=== PATIENT | female | born 1950 | race Caucasian/White ===

== ENCOUNTER 2020-05-12 07:59 | Day surgery (SDC) | payer MEDICARE, OTHER, SELFPAY ==
--- NOTE | 2020-04-28 16:25 | HP.PCM_ITS ---
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 Patient is scheduled for a total upper scopic hysterectomy, salpingo- oophorectomy, cystoscopy for persistent cervical dysplasia. Patient has had multiple abnormal Pap smears which required colposcopy. Most recent colposcopy biopsies yielded low-grade. Reviewed options with the patient including proceeding with surgical intervention versus continued Pap with HPV and colposcopies. Patient would like to proceed with surgical intervention at this time. Patient denies any chest pain, shortness of breath or dizziness. ? PAST MEDICAL HISTORY PAST MEDICAL HISTORY Diagnosis Date ? Abnormal Pap smear of cervix 06/29/14 ? LSIL and HPV+ ? Adrenal incidentaloma (HCC) 12/03/2014 ? lipid rich adenomas on MRI 11/201915 done for follow up on CT abdomen 12/03/2014 ? Breast cancer (HCC) ? ? Right- cancer free 20 years (as of 2009). Follows with oncolgist at [facility] yearly ? Displacement of lumbar intervertebral disc without myelopathy 06/24/2012 ? HTN (hypertension) 11/26/2014 ? Osteopenia 07/25/2016 ? Sciatica 06/24/2012 PAST SURGICAL HISTORY PAST SURGICAL HISTORY Procedure Laterality Date ? APPENDECTOMY ? ? ? COLONOSCOP W/ OR W/O BRSH SPEC ? 11/05/12 ? Colonoscopy ? LUMPECTOMY/RADIOTHERAPY DIAG MAMM/A10 ? 1989 ? for breast ca ? VAGINOSCOPY ? 08/08/14 FAMILY HISTORY FAMILY HISTORY Problem Relation Age of Onset ? Cancer Mother 60 ? cervical ? Coronary Artery Disease Father ? ? from massive heart attack at 76yo ? Cancer Brother ? ? esophageal ? Breast Cancer Maternal Aunt ? ? Breast Cancer Maternal Aunt ? ? Breast Cancer Maternal Aunt ? SOCIAL HISTORY Social History ? Tobacco Use ? Smoking status: Former Smoker ? ? Packs/day: 0.50 ? ? Years: 25.00 ? ? Pack years: 12.50 ? ? Types: Cigarettes ? ? Last attempt to quit: 04/22/2020 ? ? Years since quittin.0 ? Smokeless tobacco: Never Used ? Tobacco comment: Working on quitting smoking; no longer smokes in house Substance Use Topics ? Alcohol use: Yes ? ? Frequency: Monthly or less ? ? Drinks per session: 1 or 2 ? ? Binge frequency: Never ? ? Comment: occassional ? Drug use: No CURRENT MEDICATIONS Current Outpatient Medications Medication Sig ? zoledronic acid (RECLAST) 5 mg/100 mL pgbk PREMIX piggyback Inject 100 mL intravenously every year. ? ergocalciferol 50,000 unit capsule (VITAMIN D2, DRISDOL) Take 1 capsule by mouth one time a week. ? amLODIPine (NORVASC) 5 mg tablet Take 0.5 tablets by mouth once daily. ? aspirin, enteric coated (ASPIRIN, ENTERIC COATED) 81 mg EC tablet Take 1 tablet by mouth once daily. ? docusate sodium (COLACE) 100 mg capsule Take 1 capsule by mouth twice daily. ? oxyCODONE IR (ROXICODONE) 5 mg immediate release tablet Take 1 tablet by mouth every 8 hours as needed for Pain for up to 5 days. ? simethicone, chewable (MYLICON) 80 mg chewable tablet Take 1 tablet by mouth every 6 hours as needed. ? acetaminophen (TYLENOL EXTRA STRENGTH) 500 mg tablet Take 2 tablets by mouth every 6 hours as needed. FOR PAIN. ? ibuprofen (MOTRIN) 600 mg tablet Take 1 tablet by mouth every 6 hours as needed. ? No current facility-administered medications for this visit. Allergies As of Date: 04/28/2020 (No Known Allergies) Fully Assessed 04/28/2020 ? REVIEW OF SYSTEMS Abdomen: no pain Bladder: no dysuria.. Expanded ROS: GENERAL: Negative for fever Allergies and current medication updated:Yes ? EXAM: BP 130/82 Ht 5' 3.75 (1.62m) Wt 111 lb (50.3kg) BMI 19.21 kg/(m^2). GENERAL: pleasant, female in no apparent distress HEENT: Normocephalic and atraumatic NECK: full range of motion DERMATOLOGY: Normal and without lesions NEURO: alert and oriented x3,exam grossly non-focal EXTREMITIES: normal ? ASSESSMENT AND PLAN: Encounter Diagnosis ? ? ICD-10-CM ? 1. Mild cervical dysplasia N87.0 ? 2. Post-op pain G89.18 oxyCODONE IR (ROXICODONE) 5 mg immediate release tablet 3. Pre-op exam Z01.818 ? 4. Pt has been counseled on risks/benefits and alternatives of surgery including but not limited to anesthesia, bleeding, infection, injury to pelvic structures including bowel, bladder, ureters and vessels. Pt wishes to proceed with surgery at this time. 5. POST OP MEDS ORDERED 6. ERAS protocol and covid testing reviewed ? ? Leonela Abdalla MD ? Procedure Criteria Procedure Type: Elective COVID Risk Discussion: The surgeon/proceduralist and patient have discussed in detail the risk of exposure to and/or potential harm posed by the COVID-19 virus with having a surgery/procedure at this time versus the risk of delaying the surgery/procedure. It is not possible to know either the risk of delaying the surgery or procedure or chance of getting an infection with perfect accuracy, but a joint decision was made between the patient and the surgeon/proceduralist to proceed at this time with the scheduled surgery/procedure as indicated on the consent form.
--- NOTE | 2020-05-06 08:42 | EKG12_ITS ---
Test Reason : PRE OP Blood Pressure : / mmHG Vent. Rate : 063 BPM Atrial Rate : 063 BPM P-R Int : 184 ms QRS Dur : 076 ms QT Int : 376 ms P-R-T Axes : 076 -34 003 degrees QTc Int : 384 ms Normal sinus rhythm Left axis deviation Nonspecific ST abnormality Abnormal ECG Confirmed by ELVIE GOODRICH, MONICA ([id number]), multimedia editor DIANA CORNEJO ([id number]) on 05/09/2020 11:07:56 AM Referred By: Leonela Abdalla Confirmed By:MONICA BERMEO MD
[2020-05-06 09:17] LABS: Hematocrit 46.5 % (37-47); Hemoglobin 15.5 g/dL (12.0-15.0); Mean Corp Hgb Conc 33.3 g/dL (32-36); Mean Corpuscular Volume 98.9 fL (81-99); Mean Platelet Vol. 8.4 fl (6.2-12.0); Platelet Count 290 K/mm3 (150-450); RBC Distribution Width CV 12.6 % (11.6-14.6); RBC Distribution Width SD 45.7 fl (35.1-43.9); White Blood Count 6.8 K/mm3 (4.4-11.0)
[2020-05-06 10:19] LABS: Anion Gap 4 (5-15); BUN 16 mg/dL (7-18); BUN/Creat Ratio 17.6 RATIO (10-20); Calcium,Total 9.1 mg/dL (8.5-10.1); Chloride 110 mmol/L (98-107); Creatinine, Serum 0.91 mg/dL (0.55-1.02); EST Glomerular Filtration Rate 65 mL/min (>60); Est Glom Filt Rate - Afr Amer 78 mL/min (>60); Glucose 71 mg/dL (74-106); Potassium 3.8 mmol/L (3.5-5.1); Sodium Level 142 mmol/L (136-145)
[2020-05-12] VITALS (11 sets, daily range): BP systolic 103–157; BP diastolic 52–88; PULSE 63–80; RESP 15–18; TEMP 35.8–36.5; O2SAT 96–100; BMI 19.0
--- NOTE | 2020-05-12 | IMM_PTH ---
PATIENT: PHILIP RODRIGUEZ [place] [facility] [id number] AGE/SX: 70/F ROOM: RE05/12/[address]: Dr. Leonela Abdalla, MDDOB: 1950 BED: DIS: 05/12/2020 SPEC #: [id number] RECD: 05/13/20 12:29 STATUS: BETH REWaqar #: [id number] DANN: 05/12/20 00:[address]: Leonela Abdalla DEPT: IMMUNOHISTOCHEMISTRY RECD BY: Lyla Dietz ENTERED: 05/13/20 12:30 SP TYPE: IMMUNO OTHR DR: Dr. Anastasiya James MD Tissues: Uterus, NOS Procedures: p16 (initial) KI-67 (add) P16 (add) PHYSICIAN & INSTITUTION [place] [id number] SPECIMEN INFORMATION: Tissue Source: Uterus Clinical Info: Mild cervical dysplasia Specimen Number: [id number] #1 & 3 CPT code: 78472, 92566 x3 METHODOLOGY: Deparaffinized sections of prefer/formalin-fixed tissue or PAP/DQ stained slides are incubated with monoclonal/polyclonal antibodies/oligonucleotide probes. Localization is made via biotin free immunoperoxidase method. Appropriate controls are performed and reacted as expected. Results on target cell population are indicated in the following table: RESULTS: ANTIBODY / CLONE RESULT Block 1 P16 (E6H4) negative Ki-67 (30-9) negative Block 3 P16 (E6H4) negative Ki-67 (30-9) negative These tests were developed and their performance characteristics determined by [facility]. They may not have been cleared or approved by the U.S. Food and Drug Administration. The FDA has determined that such clearance or approval is not necessary. The above immunohistochemical/dualISH markers are ordered and reviewed by the Pathologist. INTERPRETATION: Uterus, hysterectomy: No evidence of cervical dysplasia. AM:mukesh 05/16/20
[2020-05-12 08:30] LABS: Bedside Glucose 90 mg/dL (70-110)
--- NOTE | 2020-05-12 08:34 | DCINST_ITS ---
Discharge Diet: No Restrictions Discharge Activity: Return to Normal Activity, May Shower, May Take a Tub Bath - in 2 weeks. May resume sexual activity in: 2 weeks Call your doctor if you observe: Fever of 101 or Higher, Using more than one pad per hour Allergies/Adverse Reactions: Allergies No Known Allergies Allergy (Verified 05/12/20 08:09) Medications to take at Discharge Amlodipine [Norvasc] 2.5 mg PO DAILY 05/05/20 Aspirin E.C. [Ecotrin] 81 mg PO DAILY@79905/05/20 Calcium (Elemental) [Os-Spencer 500] 500 mg PO DAILY@79905/05/20 Ergocalciferol [Vitamin D] 50,000 unit PO Q7D 05/05/20 Orders to be completed after discharge: 12 Lead EKG [CVS] Time Frame: 05/05/20, Facility: [facility], Location: Cardiovascular Services Magnesium Time Frame: 05/12/20, Facility: [facility], Location: Laboratory Primary Care Physician: Anastasiya James MD [Primary Care Provider] - Test Results: Test results from this visit will be discussed in further detail at your follow- up appointment, if applicable. Please Follow Up With: Leonela Abdalla MD When: as scheduled
--- NOTE | 2020-05-12 08:35 | PCM.OPRPT ---
Report of Operation Date of Procedure: 05/12/20 Pre-Operative Diagnosis: AUB, fibroid uterus Post-Operative Diagnosis: same Surgery/Procedure Performed:: Hysteroscopy, D&C, Myomectomy, Endometrial ablation Type of Anesthesia:: MAC Description of Procedure: After informed consent was obtained patient taken to the operating room she is placed in supine position she is given anesthesia simply self insert she is prepped draped normal sterile fashion. Bladder was drained prior to the start of the procedure. At this time the weighted speculum was placed the posterior fornix of the vagina then a single-tooth tenaculum was used to grasp the anterior lip of the cervix. At this time the uterus was sounded to approximately[ 9] cm the endocervical canal sounded to [4] cm. Next cervix was dilated in incremental fashion. Once adequate dilatation was achieved the hysteroscope was inserted using normal saline as distention medium. On hysteroscopy there were no gross abnormalities. Both tubal ostia were visualized. tissue will be sent to pathology for evaluation. There was no breech in the endometrial cavity after myomectomy performed. At this time the Aretha device was opened. The Aretha was set at [5] cm. The device was activated. Prior to activation the field test was performed and cavity was intact. The device was then fired and activated for 120 seconds. Once the 120 seconds was completed the device was removed intact and the tenaculum was removed. Good hemostasis was appreciated. Weighted speculum was removed. Vaginal sweep was performed is negative. There were no complications. Anticipated normal postoperative course for this patient. Instrument and lap count were correct ?2. - Admit VTE Documentation VTE Present on Admission: Yes VTE Mechan Device Prophylaxis: [facility]'s VTE Pharm Prophylaxis ordered?: No
[2020-05-12 08:52] LABS: Magnesium 2.3 mg/dL (1.6-2.6)
[2020-05-12] MEDS: Gabapentin 600 MG Tablet PO (08:52)
[2020-05-12] MEDS: Celecoxib 200 MG Capsule 400 MG PO (08:53)
[2020-05-12] MEDS: Phenazopyridine 95 MG Tablet 190 MG PO (08:53)
[2020-05-12] MEDS: Acetaminophen 500 MG Tablet 1000 MG PO ×2 (08:54→15:11)
[2020-05-12] MEDS: Scopolamine 1mg/72hr Patch 1 PATCH TRANSDERM. (08:55)
[2020-05-12] MEDS: Lactated Ringers 1,000 ML 40 ML IV ×2 (08:58→10:45)
[2020-05-12] MEDS: Enoxaparin 40 MG/0.4 ML Syringe SC (08:58)
--- NOTE | 2020-05-12 09:48 | PCM.DC.AHY ---
Discharge Diet: No Restrictions Discharge Activity: Return to Normal Activity, May Shower - tomorrow May resume sexual activity in: 6-8 weeks Lifting Restrictions: 20 Call your doctor if your incision/area has: Continuous Slow Oozing, Increased Pain/ Swelling, Foul Smelling Discharge, Swelling at the incision site Call your doctor if you observe: Fever of 101 or Higher, Inability to urinate, Inability to have a bowel movement, Using more than one pad per hour, Uncontrolled pain Cleanse incision/area with: Keep Dressing Clean & Dry, - - you have skin glue over incisions site- may let soap and water run over incisions sites and dab dry. Allergies/Adverse Reactions: Allergies No Known Allergies Allergy (Verified 05/12/20 08:40) Medications to take at Discharge Amlodipine [Norvasc] 2.5 mg PO DAILY 05/05/20 Aspirin E.C. [Ecotrin] 81 mg PO DAILY@0800 05/05/20 Calcium (Elemental) [Os-Spencer 500] 500 mg PO DAILY@0800 05/05/20 Ergocalciferol [Vitamin D] 50,000 unit PO Q7D 05/05/20 Orders to be completed after discharge: 12 Lead EKG [CVS] Time Frame: 05/05/20, Facility: [facility], Location: Cardiovascular Services Primary Care Physician: Anastasiya James MD [Primary Care Provider] - Test Results: Test results from this visit will be discussed in further detail at your follow-up appointment, if applicable. Please Follow Up With: Leonela Abdalla MD When: as scheduled
[2020-05-12] MEDS: Cefazolin 2 GM in 0.9% Normal Saline 100 ML IV (09:49)
[2020-05-12] MEDS: Bupivacaine Mpf 0.5% 30 ML VIAL (10:10)
[2020-05-12] MEDS: dexAMETHasone 10 MG/ML Vial 8 MG IV (10:10)
--- NOTE | 2020-05-12 10:15 | HYST_PTH ---
PATIENT: PHILIP RODRIGUEZ LOC: [facility] – [place] U#:[id number] AGE/SX: 70/F ROOM: RE05/12/[address]: Dr. Leonela Abdalla, MDDOB: 1950 BED: DIS: 05/12/2020 SPEC #: [id number] RECD: 05/12/20 12:19 STATUS: BETH ROBBIE #: [id number] DANN: 05/12/20 10:[address]: Leonela Abdalla DEPT: SURGICAL PATHOLOGY RECD BY: Lyla Dietz ENTERED: 05/12/20 14:29 SP TYPE: HYSTERECT OTHR DR: Dr. Anastasiya James MD Tissues: Uterus, NOS Procedures: Surgery Specimen Level V HEADER OPERATION: Total laparoscopic hysterectomy, bilateral salpingo-oophorectomy PRE-OP DIAGNOSIS: Mild cervical dysplasia TISSUE SUBMITTED: Uterus, cervix and bilateral fallopian tubes and ovaries MICROSCOPIC DIAGNOSIS Uterus, hysterectomy: Cervix - focal HPV change suspected. Endometrium - focal simple cystic hyperplasia without atypia. Myometrium - no pathologic change. Right fallopian tube - benign paratubal cyst. Right ovary - no pathologic change. Left fallopian tube - benign paratubal cysts. Left ovary - corpora albicantia. See comment. AM:mukesh 05/13/20 COMMENT Results from immunohistochemistry ([id number]) for surrogate HPV marker (p16) will be reported separately. Case has been reviewed in consultation with Dr. Lucas who concurs with the above diagnosis. IDC:SJ MICROSCOPIC DESCRIPTION Slides are reviewed. GROSS DESCRIPTION Received in fixative is one container labeled with the patient's name and designated uterus, cervix, bilateral fallopian tubes and ovaries. The specimen consists of a hysterectomy specimen consisting of uterus with cervix and attached bilateral fallopian tubes and ovaries. The uterus with cervix weighs 13 gm and measures 5 x 3 x 1.5 cm. A defect is noted at the fundus of the uterus measuring 0.5 cm in greatest dimension. The serosa is morse, glistening. The ectocervical mucosa is unremarkable. The external os is slit-like in contour. The resection margin of the cervix is inked black. The endocervical canal measures 2 cm in length and the endocervical mucosa is morse, glistening and unremarkable. The triangular endometrial cavity measures 2.5 cm in length and up to 1.5 cm in width. The endometrium is morse, glistening without any mass lesion and measures <0.1 cm in thickness. Sections of the uterine wall do not reveal any mass lesion and measures up to 0.5 cm in thickness. The right fallopian tube measures 7 cm in length and 0.4 cm in diameter. The fimbrial end is identified. Sections reveal unremarkable cut surfaces. A paratubal cyst is noted filled with clear fluid measuring 1.8 cm in greatest dimension. The fallopian tube is interrupted by two Filshie clips which appear intact in the middle portion of the fallopian tube. A paratubal cyst is filled with clear fluid and shows a smooth cyst wall. The right ovary measures 2.5 x 1.5 x 1 cm. Sections reveal unremarkable cut surfaces. The left fallopian tube measures 7.5 cm in length and 0.4 cm in diameter. It is interrupted in the middle consistent with previous tubal occlusion. The fimbrial end is identified. No Filshie clip is identified in this fallopian tube. The left ovary measures 2 x 1 x 1 cm. Sections reveal unremarkable cut surfaces. Sailing Master sections are submitted in ten cassettes as follows: 1-4 - entire cervix like a cone (1 - 12 to 3 o'clock, 2 - 3 to 6 o'clock, 3 - 6 to 9 o'clock, 4 - 9 to 12 o'clock), 5 - anterior uterine wall, 6 - posterior uterine wall, 7 - area of defect at the fundus in the uterus, 8 - right fallopian tube and paratubal cyst, 9 - right ovary, 10 - left fallopian tube and ovary. / DEEP:mukesh 05/12/20 TC:5 CPT: 42382
--- NOTE | 2020-05-12 11:46 | OP.PCM_ITS ---
Report of Operation Date of Procedure: 05/12/20 Pre-Operative Diagnosis: persistent cervical dysplasia Post-Operative Diagnosis: same Surgery/Procedure Performed:: TLH, BSO, Cystoscopy binder cutter: Cait Ortega Type of Anesthesia:: General Special Medications: 0.5% marcaine Specimen's removed: uterus, cervix, bilateral tubes and ovaries Drains: none Estimated Blood Loss (mL): 25 Fluids Replaced: 1200 Description of Procedure: Patient take to OR and prepped and draped in usual sterile fashion in dorsal lithotomy position with her arms tucked in a neurologically safe and neutral position. The uterus sounded to 5 cm. cervix flush with vagina. The sheet metal work furnace installer uterine manipulator was sutured into place at 12:00 position and fuchs was placed. Attention was turned to the abdomen. All port sites were infiltrated with 0.5% marcaine before the incisions were made. The anterior abdominal wall was tented up with towel clamps and using a direct entry approach a 5 mm infraumbilical port was placed. Intraperitoneal placement was confirmed with the laparoscope and the pneumoperitoneum was created. The patient was placed in Trendelenburg and 5 mm right and left lower quadrant ports were placed under direct visualization. Air seal rapid insufflator was used. The bowel was swept away. Ovaries appeared normal. small paratubal cyst on right. Left tube had adhesions on filshie clips to omentum. The IP ligament was grasped and clamped, sealed and transected with ligasure. Where the left tube was adherant to omentum the mesosalpinx was transected away from adhesion to free the omentum- the filshie clips were embedded in omentum- and remained to not cause bleeding. The round ligaments were divided. The anterior peritoneum was dissected down to create the bladder flap with blunt dissection and the LigaSure. The uterine arteries were isolated, clamped, sealed and cut. There was minimal back bleeding from the uterus. Straight bites on uterine arteries performed to drop them off the cuff. The sheet metal work furnace installer was used as guide to create colpotomy using monopolar tip of ligasure. once specimen was removed attention was turned to vaginal portion. The specimen was handed off. The cuff was closed with interrupted 0-vicryl figure of 8 sutures. Cystoscopy was performed bilateral ureters were visualized with good efflux. bladder was intact. f sponge stick placed in vagina. The pneumoperitoneum was recreated and the cuff and pedicles were hemostatic. Francis was placed over cuff and pedicles. The skin incisions were closed with skin glue and 3-0 monocryl in the LLQ port site. The vaginal sweep was completed by me. Grafts/Implants Used: none Grafts/Implants Used: none - Complications none - Admit VTE Documentation VTE Present on Admission: Yes - Prophylactic Lovenox was given prior to surgery VTE Mechan Device Prophylaxis: SCD's VTE Pharm Prophylaxis ordered?: Yes
[2020-05-12] MEDS: Ketorolac 15 MG/ML Vial IV (12:49)
[2020-05-12 14:09] LABS: Hemoglobin 12.7 g/dL (12.0-15.0); Mean Corp Hgb Conc 32.6 g/dL (32-36); Mean Corpuscular Hgb 32.5 pg (27.0-32.0); Mean Corpuscular Volume 99.7 fL (81-99); Mean Platelet Vol. 8.2 fl (6.2-12.0); Platelet Count 226 K/mm3 (150-450); RBC Distribution Width CV 12.8 % (11.6-14.6); RBC Distribution Width SD 45.8 fl (35.1-43.9); Red Blood Count 3.91 M/mm3 (4.2-5.4); White Blood Count 8.1 K/mm3 (4.4-11.0)
== END 2020-05-12 16:28 | disposition home or self-care (01) ==
LOC: SDC 07:59 → AC 08:00
PROVIDERS: Anesthesiology; PCP Internal Medicine; Referring Provider Obstetrics & Gynecology; Visit Provider Obstetrics & Gynecology
PROC: 0UT94ZZ Resection of Uterus, Percutaneous Endoscopic Approach (ICD-10-PCS; CPT 58571; principal; 2020-05-12 09:55)
DX: N85.01 Benign endometrial hyperplasia (principal); Z11.59 Encounter for screening for other viral diseases; N83.8 Other noninflammatory disorders of ovary, fallopian tube and broad ligament; I10 Essential (primary) hypertension; F17.210 Nicotine dependence, cigarettes, uncomplicated; Z79.899 Other long term (current) drug therapy; Z79.82 Long term (current) use of aspirin; R94.31 Abnormal electrocardiogram [ECG] [EKG]
CPT/HCPCS: 00940; 58571; 36415; 80048; 82962; 83735; 85027; 86850; 86900; 86901; 87635; 88307; 88341; 88342; 93005; G2023; J7120; J2405; J3475; U0003